=== PATIENT | female | born 1975 | race African-American/Black ===

== ENCOUNTER 2017-09-06 11:45 | Emergency (ER) | payer OTHER, MEDICAID ==
[2017-09-06] MEDS: HYDROCODONE/APAP (5/325) TAB PO (13:54)
== END 2017-09-06 14:25 | disposition home or self-care (01) ==
LOC: FTE 11:45
DX: L02.31 Cutaneous abscess of buttock (principal); L02.415 Cutaneous abscess of right lower limb
CPT/HCPCS: 99283; Z7502